=== PATIENT | male | born 1955 | race Caucasian/White ===

== ENCOUNTER 2017-12-05 01:46 | Outpatient (RCR) | payer BC, SELFPAY ==
[2017-12-05] MEDS: Lidocaine 1% Pres-Free 5 ML VIAL IJ (14:02)
[2017-12-05] MEDS: cefTRIAXone 250 MG VIAL IM (14:02)
== END 2017-12-12 23:59 | disposition home or self-care (01) ==
LOC: INF 01:46
PROVIDERS: PCP Internal Medicine; Visit Provider Internal Medicine
DX: N45.1 Epididymitis (principal)
CPT/HCPCS: 96372; J0696

== ENCOUNTER 2018-01-08 01:01 | Outpatient (CLI) | payer BC, SELFPAY ==
--- NOTE | 2018-01-08 12:00 | DI.US_ITS ---
SYMPTOM/DIAGNOSIS: EPIGASTRIC PAIN/ ? MASS R10.13 ABDOMEN ULTRASOUND: There are no prior comparison exams. The aorta is normal in diameter. The pancreas is not well visualized due to body habitus and bowel gas. No gross masses are seen. Small lesions cannot be excluded. The liver is mildly enlarged and shows fatty infiltration. No focal liver lesions are visible. The posterior portions of the liver are not well seen. There is no biliary dilatation. The gallbladder appears normal. Small left renal cyst is seen. There is no evidence of hydronephrosis. The kidneys show normal parenchymal thickness. No ascites is seen. IMPRESSION: Fatty infiltration of the liver. Pancreas is not well visualized.
--- NOTE | 2018-01-08 12:04 | DI.US_ITS ---
SYMPTOM/DIAGNOSIS: SCROTAL PAIN, SWELLING, NOT ACUTE SCROTAL ULTRASOUND: The testicles are normal in size and echogenicity and show normal blood flow. No mass is identified. The epididymi are unremarkable. There are bilateral hydroceles, left greater than right No varicocele is seen. No inguinal hernias are identified. IMPRESSION: Bilateral hydroceles, left greater than right.
== END 2018-01-08 01:21 ==
PROVIDERS: PCP Internal Medicine; Visit Provider Internal Medicine
DX: N50.82 Scrotal pain (principal); N43.3 Hydrocele, unspecified; R10.13 Epigastric pain; K76.0 Fatty (change of) liver, not elsewhere classified
CPT/HCPCS: 76700; 76870

== ENCOUNTER 2018-01-09 08:29 | Outpatient (CLI) | payer BC, SELFPAY ==
[2018-01-10 09:50] LABS: HIV-1/2 Ag & Ab Screen Negative (NEGAT)
[2018-01-10 10:18] LABS: Syphilis Serology (RPR) Positive (Negative)
[2018-02-18 10:15] LABS: Syphilis IgG Ab w/Reflex Positive (Negative)
[2018-02-18 10:16] LABS: Rapid Plasma Reagin w/Reflex Positive (Negative)
== END 2018-01-09 08:49 ==
PROVIDERS: PCP Internal Medicine; Visit Provider Nurse Practitioner Family
DX: A51.5 Early syphilis, latent (principal); Z11.3 Encounter for screening for infections with a predominantly sexual mode of transmission
CPT/HCPCS: 36415; 86593; 87389; 87491; 87591; 86592; 86780

== ENCOUNTER 2018-01-14 09:18 | Day surgery (SDC) | payer BC, SELFPAY ==
--- NOTE | 2018-01-14 06:54 | W.COLOREPORT ---
Date of service: 01/14/18 Time of Service: :34 Colonoscopy Report Date of procedure: 01/14/18 Pre-op diagnosis general: Colon Cancer Screening Post-op diagnosis procedure note: same (Severe Diverticulosis ) Procedure: Colonoscopy Surgeon: Isabel Mc Anesthesia proc note operative: MAC (Ruben Chaparro, ARELY / ASA 2) Estimated blood loss (mL): 0 Pathology: none sent Complications: None Disposition: same day Indications: Mr. Magaña is a pleasant 62-year-old gentleman who was seen in the office for a screening colonoscopy. His last colonoscopy was normal. Risks, benefits, complications were reviewed with him and he wished to proceed. No guarantees were given or implied. Prep: Miralax/Dulcolax Procedure Start Time: :34 Procedure End Time: :55 Retraction Time: 14 minutes Findings: severe river-diverticulosis Procedure Description: After informed consent was obtained the patient was taken to the procedure room and placed in a left decubitous position. Monitors were applied and a time out was done. The patients name, date of , procedure, allergies to medications and metal in their body was reviewed. The patient was then sedated. Once sedated and comfortable a rectal exam was done. External exam was normal. Internal exam revealed a normal sphincter tone and no palpable masses. The prostate was not felt. The scope was then introduced and retro-flexed. No internal hemorrhoids were identified. The scope was then advanced to the cecum without difficulty. The TI and appendiceal orifice were identified. The prep was adequate. The scope was then slowly retracted over 14 minutes back into the rectum. The scope was removed and the patient was woken up and taken back to Same day surgery in stable condition. The patient tolerated the procedure well and there were no immediate complications. Follow up: The patient should follow up in 10 years unless they develop changes in bowel habits or other new gastrointestinal complaints.
--- NOTE | 2018-01-14 06:56 | PDOC.DSDIS_ITS ---
Discharge Plan Disposition Patient Disposition: HOME Condition: Good Discharge Details Reason For Visit: Colon Cancer Screening Attending Provider: Isabel Mc Primary Care Provider: Kiya Banegas Home Meds and New Rx's Prescriptions: Continue triamcinolone acetonide 15 GM cream 15 gm Topical PRN RF: 0 losartan-hydrochlorothiazide [Hyzaar] 1 EACH tablet 1 tab-cap PO DAILY RF: 0 ibuprofen 600 MG tablet 600 mg PO Q6H PRN PRNQty: 30 RF: 0 Discontinued bisacodyl [Dulcolax (bisacodyl)] 5 mg tablet,delayed release (DR/EC) 5 mg PO ONCE Qty: 4 RF: 0 polyethylene glycol 3350 17 gram/dose powder 255 g PO ONCE Qty: 255 RF: 0 Discharge Instructions Instructions: Colonoscopy (DC), Diverticulosis (DC) Additional Instructions: Findings: Severe Diverticulosis Follow up: 10 years new medications: none Please call if you develop: fevers >101.5 Nausea or Vomiting Abdominal pain that is not transient DAY SURGERY UNIT POST COLONOSCOPY INSTRUCTIONS 1. Because there will be medication in your system for the next 24 hours, you may feel a little sleepy. Your coordination will be affected. Therefore: a. Do not drive or operate dangerous equipment for 24 hours. b. Do not drink alcohol beverages for 24 hours (not even beer). c. Plan to go home and rest for the day. 2. Generally there are no restrictions on your activity after a day or so has gone by, but you may feel a bit fatigued for a few days. 3 After you arrive home you may have a light meal and return to a normal diet as you can tolerate it without feeling sick to your stomach. 4. After surgery, you may feel pain or discomfort. This should be only transient , but if it persists please contact your doctor. 5. If there are any questions regarding the findings of your procedure, please feel free to contact your doctor. 6. If you are unable to contact your doctor with a problem, contact the hospital at [phone]. 7. Continue all your regular medications unless directed otherwise. I understand the above instructions and have no questions. Signature of Patient or Responsible Adult Escort Date/Time Name of Responsible Adult Escort Signature of Nurse Date/Time Activity:: Activity as Tolerated Diet:: High Fiber diet Discharge Orders Discharge Orders: Discharge Order (Routine); Ordered 01/14/18 Ordered By: Isabel Mc DS: Diagnosis Discharge Diagnosis (1) Diverticulosis: Status: Acute (2) S/P colonoscopy: Status: Acute
[2018-01-14 09:45] VITALS: BP 146/99; PULSE 88; RESP 16; TEMP 37.3; O2SAT 95
[2018-01-14] MEDS: Lactated Ringers 1,000 ML 80 ML IV ×2 (10:11→11:26)
[2018-01-14 12:53] VITALS: BP 136/86; PULSE 78; RESP 16; TEMP 36.2; O2SAT 95
== END 2018-01-14 12:50 | disposition home or self-care (01) ==
LOC: SUR 09:19
PROVIDERS: PCP Internal Medicine; Visit Provider Surgery
PROC: 0DJD8ZZ Inspection of Lower Intestinal Tract, Via Natural or Artificial Opening Endoscopic (ICD-10-PCS; CPT 45378; principal; 2018-01-14 11:45)
DX: Z12.11 Encounter for screening for malignant neoplasm of colon (principal); K57.30 Diverticulosis of large intestine without perforation or abscess without bleeding; I10 Essential (primary) hypertension
CPT/HCPCS: 45378

== ENCOUNTER 2018-06-07 02:44 | Outpatient (RCR) | payer BC, SELFPAY ==
[2018-06-07] MEDS: cefTRIAXone 250 MG VIAL IM (07:31)
== END 2018-06-11 23:59 | disposition home or self-care (01) ==
LOC: INF 02:44
PROVIDERS: PCP Internal Medicine; Visit Provider Internal Medicine
DX: Z20.2 Contact with and (suspected) exposure to infections with a predominantly sexual mode of transmission (principal)
CPT/HCPCS: 96372; J0696

== ENCOUNTER 2018-07-05 19:31 | Emergency (ER) | payer BC, SELFPAY ==
[2018-07-05 19:39] VITALS: BP 189/91; PULSE 96; RESP 18; TEMP 37; O2SAT 95
[2018-07-05] MEDS: Emtricitabine/Tenofovir 200 mg/300 mg TAB 1 EACH PO (20:52)
[2018-07-05] MEDS: cefTRIAXone 1 GM VIAL 0.25 GM IM (20:52)
[2018-07-05] MEDS: Azithromycin 250 MG TAB 1000 MG PO (20:53)
[2018-07-05] MEDS: Raltegravir Potassium 400 MG TAB 800 MG PO ×2 (20:53→21:04)
[2018-07-05 21:07] LABS: Abs Immature Grans 0.03 k/cumm (0.0-0.09); Absolute Basophil Count 0.05 k/cumm (0.0-0.2); Absolute Eosinophil Count 0.23 k/cumm (0.0-0.7); Absolute Lymphocyte Count 3.27 k/cumm (1.2-3.4); Absolute Monocyte Count 0.71 k/cumm (0.11-0.7); Absolute Neutrophil Count 5.09 k/cumm (1.2-6.7); Basophils % 0.5; Eosinophils % 2.5; HCT 44.8 % (40.0-50.0); HGB 15.4 g/dL (13.5-17.5); Immature Grans % 0.3; Lymphocytes % 34.9; Mean Corp. HGB Concentration 34.4 g/dL (32.0-36.0); Mean Corpuscular Hemoglobin 30.6 pg (27.0-33.0); Mean Corpuscular Volume 88.9 fL (80-95); Monocytes % 7.6; Neutrophils % 54.2; Platelet Count 206 x1000/uL (130-400); RBC 5.04 m/cumm (4.50-6.00); RBC Distribution Width 13.8 % (11.8-14.1); White Blood Cell Count 9.38 k/cumm (4.4-10.8)
[2018-07-05 21:18] LABS: ALT 39 U/L (12-78); AST 30 U/L (15-37); Albumin 3.5 g/dL (3.4-5.0); Alkaline Phosphatase 59 U/L (46-116); Anion Gap 8.8 mmol/L (3-11); BUN 12 mg/dL (7-18); Bilirubin, Total 0.5 mg/dL (0.2-1.0); CO2 27.2 mmol/L (21.0-32.0); CREATININE 0.76 mg/dL (0.70-1.30); Calcium 8.8 mg/dL (8.5-10.1); Chloride 101 mmol/L (98-107); Glucose 140 mg/dL (70-100); Potassium 3.4 mmol/L (3.5-5.1); Sodium 137 mmol/L (136-145); Total Protein 7.5 g/dL (6.4-8.2)
--- NOTE | 2018-07-05 21:34 | W.ED.GENAD ---
Discharge Plan Disposition Patient Disposition: HOME Condition: Good Discharge Details Chief Complaint: BodyFldExp Clinical Impression: Concern about STD in male without diagnosis Primary Care Provider: Kiya Banegas ED Provider: Noé Kelley Home Meds and New Rx's Prescriptions: New Truvada 200-300 mg tablet 1 tab PO DAILY 25 Days Qty: 25 RF: 0 raltegravir 400 mg tablet 400 mg PO BID 25 Days Qty: 50 RF: 0 Continued triamcinolone acetonide 15 GM cream 15 gm Topical PRN RF: 0 losartan-hydrochlorothiazide [Hyzaar] 1 EACH tablet 1 tab-cap PO DAILY RF: 0 Discharge Instructions Instructions: Antiretroviral Medication Allergy (ED), Postexposure Prophylaxis (ED), HIV Infection (ED) Additional Instructions: If he becomes symptomatic or have any complications feel free to return the emergency department for reassessment. Otherwise it is recommended that you follow-up with your primary care provider for reassessment and further treatment as needed. Make sure that you take the full course of your medication for the entire 28 days to lower chances of possible infection. Stand Alone Forms: Work Release Referrals: Kiya Banegas [Primary Care Provider] - (For follow-up and retesting as needed) Discharge Data Discharge Date/Time-TO BE ENTERED AT DEPARTURE: 07/05/18 21:52 Medical Decision Making Patient presenting to the emergency department for chief complaint of possible STD exposure. Patient states that he was having anal sex with another man who is a new partner and the condom broke and semen was ejaculated into rectum. Patient states that he was tested less than 1 month ago and has always been HIV negative and has syphilis antibodies but has been treated appropriately. Patient denies any medical complaints at this time but just states for concern of possible STD exposure. Had thorough discussion with patient of risk and treatment of STD prophylactic exposure. Patient was agreeable to receiving PEP for full 28-day course along with prophylactic treatment for GC chlamydia. Patient given IM Rocephin, azithromycin, and initial doses of antivirals. Given holiday weekend patient was supplied with 3-day supply of antivirals and given prescription for remaining 25 days. Patient was encouraged to get retesting done and was informed to return for any symptoms. After discussion of diagnosis and plan of care patient has no further needs, questions, or concerns and states clear understanding to return to the emergency department for any worsening symptoms. HPI General Mode of arrival: ambulatory. Date/Time Provider Initiated Documentation: 07/05/18 19:34. Limitations to Documentation: no limitations. Information obtained by: patient and RN notes reviewed. History of Present Illness 63 year old M presents to the emergency department with the chief complaint of Possible STD exposure, Quality is described as other (Denies pain or discomfort), Patient started experiencing this day(s) (1) Patient notes no other symptoms.. Patient did receive the following treatments prior to arrival, none Related Data Home Medications Medication Instructions Recorded Confirmed losartan-hydrochlorothiazide 1 tab-cap PO DAILY tab-cap 06/06/16 07/05/18 [Hyzaar] triamcinolone acetonide 15 gm TOPICAL PRN script 06/06/16 07/05/18 emtricitabine-tenofovir (TDF) 1 tab PO DAILY 25 Days #25 tab 07/05/18 [Truvada] raltegravir 400 mg PO BID 25 Days #50 tab 07/05/18 Previous Rx's Medication Instructions Recorded emtricitabine-tenofovir (TDF) 1 tab PO DAILY 25 Days #25 tab 07/05/18 [Truvada] raltegravir 400 mg PO BID 25 Days #50 tab 07/05/18 Allergies Allergy/AdvReac Type Severity Reaction Status Date / Time No Known Allergies Allergy Unverified 07/05/18 19:43 General Stated Complaint: BodyFldExp ROGELIO: 4 Review of Systems Constitutional Denies body ache(s), Denies chills and Denies fever(s) Cardiovascular Denies chest pain and Denies dyspnea Respiratory Denies dyspnea Gastrointestinal Denies abdominal pain, Denies nausea and Denies vomiting Genitourinary Denies genital lesions and Denies penile discharge Integumentary/Breasts Denies rash Neurologic Denies sensory deficit [facility] Medical History Diverticulosis (Acute) HTN (hypertension) Umbilical hernia Surgical History S/P colonoscopy (Acute ~01/14/18) Repair of umbilical hernia (07/19/16) Social History Smoking/Tobacco Use Status: Never Alcohol Intake: current Alcohol Intake frequency: 0-2 drinks per day Alcohol type: wine Drug use: Occasionally Substance use type: does not use Do you feel safe at home: Yes Do you feel safe in your relationship?: Yes Exam Const General: cooperative, no acute distress and not ill appearing Orientation: alert, awake and oriented x3 Resp Effort & Inspection: normal respiratory effort, able to speak in complete sentences and no respiratory distress Cardio Rhythm: regular rhythm Skin General skin exam: no rashes or lesions noted Neuro General: alert, awake and oriented x3 Course Vital Signs Temperature 37.0 C 07/05/18 19:39 Pulse 96 H 07/05/18 19:39 Respiratory Rate 18 07/05/18 19:39 Blood Pressure 189/91 H 07/05/18 19:39 Pulse Oximetry 95 07/05/18 19:39 Temperature 37.0 C 07/05/18 19:39 Temperature Source Skin 07/05/18 19:39 Pulse 96 H 07/05/18 19:39 Respiratory Rate 18 07/05/18 19:39 Respiratory Effort Non-Labored 07/05/18 19:41 Blood Pressure 189/91 H 07/05/18 19:39 Blood Pressure Position Sitting 07/05/18 19:39 Pulse Oximetry 95 07/05/18 19:39 Oxygen Delivery Method Room Air 07/05/18 19:39 Oxygen Flow Rate 0 07/05/18 19:39 Pain Level 0 07/05/18 19:39 Lab/Test Results Lab/Test Results: Laboratory Tests Range/Units 07/05/18 07/05/18 07/05/18 20:51 21:00 21:00 WBC (4.4-10.8) k/cumm 9.38 RBC (4.50-6.00) m/cumm 5.04 Hgb (13.5-17.5) g/dL 15.4 Hct (40.0-50.0) % 44.8 MCV (80-95) fL 88.9 MCH (27.0-33.0) pg 30.6 MCHC (32.0-36.0) g/dL 34.4 RDW (11.8-14.1) % 13.8 Plt Count (130-400) x1000/uL 206 MPV (8.0-11.0) fL 9.0 Immature Gran % 0.3 Neutrophils % 54.2 Lymphocytes % 34.9 Monocytes % 7.6 Eosinophils % 2.5 Basophils % 0.5 Absolute Neutrophils (1.2-6.7) k/cumm 5.09 Absolute Lymphocytes (1.2-3.4) k/cumm 3.27 Absolute Monocytes (0.11-0.7) k/cumm 0.71 H Absolute Eosinophils (0.0-0.7) k/cumm 0.23 Absolute Basophils (0.0-0.2) k/cumm 0.05 Sodium (136-145) mmol/L 137 Potassium (3.5-5.1) mmol/L 3.4 L Chloride (98-107) mmol/L 101 Carbon Dioxide (21.0-32.0) mmol/L 27.2 Anion Gap (3-11) mmol/L 8.8 BUN (7-18) mg/dL 12 Creatinine (0.70-1.30) mg/dL 0.76 Estimated GFR/1.73 m2 (mL/min/1.73m2) >= 60.00 Glucose (70-100) mg/dL 140 H Calcium (8.5-10.1) mg/dL 8.8 Total Bilirubin (0.2-1.0) mg/dL 0.5 AST (15-37) U/L 30 ALT (12-78) U/L 39 Alkaline Phosphatase (46-116) U/L 59 Total Protein (6.4-8.2) g/dL 7.5 Albumin (3.4-5.0) g/dL 3.5 HIV 1&2 Antibody Rapid Cancelled
[2018-07-05] MEDS: Emtricitabine/Tenofovir 200 mg/300 mg TAB 2 EACH PO (21:43)
[2018-07-05] MEDS: Raltegravir Potassium 400 MG TAB 2000 MG PO (21:44)
--- NOTE | 2018-07-06 09:38 | NUR.NOTE ---
Nursing Note: Pt returned to ED concerned about getting meds filled. States that he called his pharmacy at [facility] who stated one would not be available until Sunday. Dr. Raymond also called and spoke with Nae who stated that meds are available and both scripts can be filled today. RX faxed to [facility] and paper copies given back to patient to take to pharmacy.
== END 2018-07-05 21:52 | disposition home or self-care (01) ==
PROVIDERS: Emergency Provider Nurse Practitioner Family; PCP Internal Medicine
DX: F41.9 Anxiety disorder, unspecified (principal); Z77.21 Contact with and (suspected) exposure to potentially hazardous body fluids; I10 Essential (primary) hypertension
CPT/HCPCS: 80053; 96372; 99284; 85025; J0696

== ENCOUNTER 2019-09-19 02:39 | Outpatient (CLI) | payer BC, SELFPAY ==
[2019-09-19 17:16] LABS: Anion Gap 11.2 mmol/L (3-11); BUN 20 mg/dL (7-18); CO2 25.8 mmol/L (21.0-32.0); CREATININE 0.81 mg/dL (0.70-1.30); Calcium 9.2 mg/dL (8.5-10.1); Calculated LDL 128 mg/dL (<100); Chloride 104 mmol/L (98-107); Cholesterol 201 mg/dL (<200); Glucose 82 mg/dL (74-106); HDL Cholesterol 50 mg/dL (40-60); Potassium 3.8 mmol/L (3.5-5.1); Sodium 141 mmol/L (136-145); Triglyceride 115 mg/dL (<150)
[2019-09-19 17:49] LABS: Hemoglobin A1C 5.8 % (3.8-5.6)
== END 2019-09-19 02:59 ==
PROVIDERS: PCP Internal Medicine; Visit Provider Internal Medicine
DX: I10 Essential (primary) hypertension (principal); E78.5 Hyperlipidemia, unspecified; R73.03 Prediabetes
CPT/HCPCS: 36415; 80048; 80061; 83036

== ENCOUNTER 2020-02-18 05:08 | Outpatient (CLI) | payer BC, SELFPAY ==
[2020-02-18 16:57] LABS: Calculated LDL 130 mg/dL (<100); Cholesterol 206 mg/dL (<200); HDL Cholesterol 55 mg/dL (40-60); Triglyceride 105 mg/dL (<150)
[2020-02-18 18:40] LABS: Hemoglobin A1C 5.7 % (<5.7)
[2020-02-18 22:01] LABS: PSA, Screening 0.6 ng/mL (0.0-4.5)
[2020-02-19 10:38] LABS: HIV-1/2 Ag & Ab Screen Negative (Negative)
== END 2020-02-18 05:28 ==
PROVIDERS: PCP Internal Medicine; Visit Provider Internal Medicine
DX: Z00.00 Encounter for general adult medical examination without abnormal findings (principal); Z13.1 Encounter for screening for diabetes mellitus; Z13.220 Encounter for screening for lipoid disorders; Z11.4 Encounter for screening for human immunodeficiency virus [HIV]; Z12.5 Encounter for screening for malignant neoplasm of prostate
CPT/HCPCS: 36415; 80061; 84153; 87389; 83036

== ENCOUNTER 2020-08-17 04:03 | Outpatient (CLI) | payer BC, SELFPAY ==
[2020-08-17 16:56] LABS: Hemoglobin A1C 5.8 % (<5.7)
[2020-08-17 18:01] LABS: Calculated LDL 125 mg/dL (<100); Cholesterol 207 mg/dL (<200); HDL Cholesterol 59 mg/dL (40-60); Triglyceride 115 mg/dL (<150)
[2020-08-18 17:46] LABS: PSA, Screening 0.5 ng/mL (0.0-4.5)
[2020-08-19 11:06] LABS: HIV-1/2 Ag & Ab Screen Negative (Negative)
== END 2020-08-17 04:04 | disposition home or self-care (01) ==
LOC: LBO 04:03
PROVIDERS: PCP Internal Medicine; Visit Provider Internal Medicine
DX: Z00.00 Encounter for general adult medical examination without abnormal findings (principal); Z13.1 Encounter for screening for diabetes mellitus; Z13.220 Encounter for screening for lipoid disorders; Z12.5 Encounter for screening for malignant neoplasm of prostate; Z11.4 Encounter for screening for human immunodeficiency virus [HIV]
CPT/HCPCS: 36415; 80061; 84153; 87389; 83036

== ENCOUNTER 2020-09-08 09:26 | Outpatient (CLI) | payer BC, SELFPAY ==
[2020-09-08 16:13] LABS: ALT 42 U/L (16-63); AST 29 U/L (15-37); Albumin 3.7 g/dL (3.4-5.0); Alkaline Phosphatase 61 U/L (46-116); Anion Gap 8.9 mmol/L (3-11); BUN 12 mg/dL (7-18); Bilirubin, Total 0.4 mg/dL (0.2-1.0); CO2 29.1 mmol/L (21.0-32.0); CREATININE 0.8 mg/dL (0.70-1.30); Calcium 8.8 mg/dL (8.5-10.1); Chloride 102 mmol/L (98-107); Glucose 121 mg/dL (74-106); Potassium 3.8 mmol/L (3.5-5.1); Sodium 140 mmol/L (136-145); Total Protein 7.2 g/dL (6.4-8.2)
== END 2020-09-08 09:27 | disposition home or self-care (01) ==
PROVIDERS: PCP Internal Medicine; Visit Provider Internal Medicine
DX: I10 Essential (primary) hypertension (principal)
CPT/HCPCS: 36415; 80053

== ENCOUNTER 2023-10-22 01:21 | Outpatient (CLI) | payer BC, MEDICARE, SELFPAY ==
--- NOTE | 2023-10-22 08:30 | DI.US_ITS ---
APPROVED REPORT EXAM: Comprehensive 2D, Doppler, and color-flow Echocardiogram Patient Location: Out-Patient Patching Machine Operator: Sonu Abad RDCS (AE) Indications: Nonischemic [employer] SAL[employer] Other Information Technically limited study due to body habitus. Conclusion Normal left ventricular wall thickness and chamber size. Ejection fraction is 45%. There is global hypokinesis Normal right ventricular size and function Left atrium is mildly dilated. Right atrial size is normal There are no structural valvular abnormalities Trace to mild mitral regurgitation Wall motion Left Ventricle The left ventricle is normal size. Left ventricular systolic function is mild to moderately decreased . There is normal left ventricular wall thickness. There is global hypokinesis of the left ventricle. There is no ventricular septal defect visualized. LVEF is 45%. Right Ventricle The right ventricle is normal size. The right ventricular systolic function is normal. Atria Left atrium is mildly dilated. The right atrium size is normal. The interatrial septum is intact with no evidence for an atrial septal defect. Aortic Valve The aortic valve is normal in structure. Aortic valve is trileaflet. There is no aortic valvular sten osis. No aortic regurgitation is present. Mitral Valve The mitral valve is normal in structure. No evidence of mitral valve stenosis. Trace to mild mitral r egurgitation. Tricuspid Valve The tricuspid valve is normal in structure. There is no tricuspid valve stenosis. Trace tricuspid reg urgitation. Unable to assess PA pressure. Pulmonic Valve The pulmonary valve is normal in structure. There is no pulmonic valvular stenosis. Trace pulmonic re gurgitation. Great Vessels The aortic root is normal in size. Ascending aorta is normal in caliber. Aortic arch is normal in sue iber. IVC is normal in size and collapses >50% with inspiration. Pericardium There is no pericardial effusion. 2D Dimensions IVSD d PLAX 0.86 cm M: 0.6-1.2 Ao Root d 3.26 cm M: 3.1 - 3.7 LVPW d PLAX 0.88 cm M: 0.6 - 1.2 Ao Asc Diam d 3.46 cm M: 2.6 - 3.4 LVID d PLAX 6.50 cm M: 4.2 - 5.8 LVDs 5.02 cm M: 2.5 - 4.0 LV EF Teichholz 44.9 % FS 22.86 % LV EDV (Teich) 216.2 mL LV ESV (Teich) 119.2 mL Stroke Vol Index (Teich) 41.66 M-Mode TAPSE 2.72 cm (M/F) >1.7 Auto EF LV EDV A4C 173.7 mL LV EDV A2C 172.3 mL LV EDV BP 171.7 mL LV ESV A4C 95.2 mL LV ESV A2C 93.0 mL LV ESV BP 93.2 mL LVEF(%) A4C 45.2 % LVEF(%) A2C 46.0 % LVEF(%) BP 45.7 % LV SV A4C 78.5 ml LV SV A2C 79.3 ml LV SV BP 78.5 ml LV CO A4C 5.5 L/min LV CO A2C 5.3 L/min LV CO BP 5.4 L/min HR A4C 70.59 BPM HR A2C 67.01 BPM LV EDV Index (BP) LA Volume LA Length A4C 5.1 cm LA Length A2C 5.2 cm LA Area A4C s 18.59 cm2 LA Area A2C s 20.51 cm2 LA Vol A4C A-L 57.41 mL LA Vol A2C A-L 69.25 mL LA Vol Biplane A-L 63.3 mL LA Vol/BSA A4C A-L LA Vol/BSA A2C A-L LA Vol/BSA BP A-L 27.2 mL/m2 LA Vol A4C MOD 53.2 mL LA Vol A2C MOD 62.7 mL LA Vol BP MOD 57.7 mL RA Volume RA Area A4C 14.6 cm2 RA ESV A4C (A-L) 38.7mL RA Vol/BSA A4C A-L RA Length A4C 4.7 cm RA ESV A4C (MOD) 32.3mL LV Diastology MV E' medial 0.055 (>0.07 m/s) MV E Vmax 0.36 (0.4-1.3 m/s) MV E/E' MED 6.48 (<14) MV A Vmax 0.80 (0.4-1.3 m/s) MV E' lateral 0.079 (>0.1 m/s) E/A Ratio 0.4 MV E/E' LAT 4.51 (<14) MV E' Average 0.067 m/s MV E/E'(average) 5.32 Aortic Valve AoV Vmax 1.19 m/s LVOT Vmax 0.85 m/s AoV Peak Grad 5.7 mmHg LVOT Peak Grad 2.9 mmHg AoV Area (Vmax) 2.46 cm2 LVOT VTI 0.213 m AoV VTI 0.273 m LVOT Mean Grad 1.5 mmHg AoV Mean Magnus. 0.89 m/s LVOT SV 73.90 mL AoV Mean Grad 3.5 mmHg LVOT Diam s 2.10 cm AoV Area (VTI) 2.70 cm2 AV Regurg Peak Gr. 5.70 mmHg Velocity Ratio 0.71 Mitral Valve MV DT 198 (160-240 msec) MV Vmax TIPS 0.95 m/s MV Mean Grad 1.2 (<2mmHg) MV VTI 0.317 m Pulmonary Valve PV Vmax 1.04 (0.5-1.5 m/s) RVOT Vmax 0.57 m/s PV Peak Grad 4.4 mmHg RVOT Peak Gr. 1.3 mmHg PV Mean Magnus 0.70 m/s RVOT VTI 0.125 m PV Mean Grad 2.3 mmHg RVOT Mean Gr. 0.7 mmHg
== END 2023-10-22 01:41 ==
PROVIDERS: PCP Internal Medicine; Visit Provider Internal Medicine
DX: I25.5 Ischemic cardiomyopathy (principal)
CPT/HCPCS: 93306

== ENCOUNTER 2023-12-25 07:49 | Outpatient (CLI) | payer MEDICARE, BC, SELFPAY ==
--- NOTE | 2023-12-25 07:45 | RT.EKG_ITS ---
APPROVED REPORT Exam: Resting ECG Reason for Exam: CMP, HTN Patient Location: O HR:72 bpm ECG Measurements Heart Rate 72 AXIS ME 170 P 27 QRSd 107 QRS -15 QT 382 T 47 QTc 419 Conclusion Sinus rhythm...normal P axis, V-rate 50- 99 Ventricular premature complex...V complex w/ short R-R interval , early transition...QRS area>0 in V2
== END 2023-12-25 07:50 | disposition home or self-care (01) ==
LOC: DI.CARD 07:50
PROVIDERS: PCP Internal Medicine; Visit Provider Internal Medicine Cardiovascular Disease
DX: I42.9 Cardiomyopathy, unspecified (principal)
CPT/HCPCS: 93010

== ENCOUNTER → 2023-12-25 11:00 | Outpatient (BNVA) | payer MEDICARE, BC, SELFPAY | PROVIDERS: PCP Internal Medicine; Referring Provider Internal Medicine; Visit Provider Internal Medicine Cardiovascular Disease | DX: R94.31 Abnormal electrocardiogram [ECG] [EKG] (principal); I42.9 Cardiomyopathy, unspecified; I10 Essential (primary) hypertension | CPT/HCPCS: 93005; 99203 ==

== ENCOUNTER 2023-12-29 14:48 | Emergency (ER) | payer MEDICARE, BC, SELFPAY ==
[2023-12-29] VITALS (7 sets, daily range): BP systolic 121–183; BP diastolic 75–88; PULSE 75–88; RESP 13–28; TEMP 36.8; O2SAT 93–98
--- NOTE | 2023-12-29 14:45 | RT.EKG_ITS ---
APPROVED REPORT Exam: Resting ECG Reason for Exam: Heart Attack ? Patient Location: E HR:75 bpm ECG Measurements Heart Rate 75 AXIS OR 166 P 44 QRSd 106 QRS -31 QT 398 T [id number] QTc 445 Conclusion Sinus rhythm at a rate of 75 without acute ischemic change
--- NOTE | 2023-12-29 14:45 | DI.RAD_ITS ---
Exam(s) XR PORTABLE CHEST AP EXAM: XR PORTABLE CHEST AP CLINICAL HISTORY: Chest pain TECHNIQUE: 2D digital imaging was performed. COMPARISON: No exams were available for comparison FINDINGS: Exam limited by under penetration. LUNGS: Clear. No pleural abnormality seen. HEART: Mildly enlarged. AORTA: Normal diameter. BONES: Unremarkable for age. Soft tissues: Unremarkable. IMPRESSION: No acute findings. DATA REPOSITORY: RADIATION DOSE DELIVERED:
[2023-12-29 15:04] LABS: Abs Immature Grans 0.04 10^3/uL (0.0-0.06); Absolute Lymphocyte Count 4.05 10^3/uL (1.2-3.4); Basophils % 0.5 %; Eosinophils % 2.7 %; HCT 45.5 % (40.0-50.0); HGB 15.4 g/dL (13.5-17.5); Immature Grans % 0.4 %; MCH 30.9 pg (27.0-33.0); MCHC 33.8 % (32.0-36.0); MCV 91 fL (80-95); MPV 8.8 fL (8.0-11.0); Monocytes % 8.2 %; Neutrophils % 51.2 %; Platelet Count 226 10^3/uL (130-400); RBC 4.98 10^6/uL (4.36-5.78); RDW 13.4 % (11.8-14.1); RDW-SD 44.7 fL; WBC 10.94 10^3/uL (4.4-10.8)
[2023-12-29 15:05] LABS: Absolute Basophil Count 0.05 10^3/uL (0.0-0.2)
--- NOTE | 2023-12-29 15:10 | W.ED.GENAD ---
Discharge Plan Disposition Patient Disposition: Home Condition: Stable Discharge Details Clinical Impression: Chest pain Primary Care Provider: Kiya Banegas ED Provider: Mendy Jones Home Meds and New Rx's Prescriptions: No Action olmesartan 40 mg tablet 20 mg PO DAILY pravastatin 20 mg tablet 20 mg PO DAILY magnesium 250 mg tablet 250 mg PO .3Xw cholecalciferol (vitamin D3) 25 mcg (1,000 unit) capsule 25 mcg PO DAILY aspirin [Adult Aspirin Regimen] 81 mg tablet,delayed release (DR/EC) 81 mg PO DAILY omega 6-vmn-cvn-fish oil [Fish Oil] 1,000 (120-180) mg capsule 1 cap PO DAILY triamcinolone acetonide 15 GM cream 15 gm Topical PRN spironolactone 25 mg tablet 25 mg PO DAILY Discharge Instructions Instructions: Chest Pain, Adult ED Additional Instructions: As discussed your heart protein recheck today all came back unremarkable. The rest of your workup is also unremarkable which is reassuring. Nevertheless I would recommend you follow-up with Dr. Wei. Please call her office on Sunday to make an appointment however should you get worse or if you develop any new or concerning symptoms please return to the emergency department for reevaluation. HPI General Date/Time Provider Initiated Documentation: 12/29/23 14:50. HPI Narrative: The patient is a 68-year-old male with a history of borderline diabetes, coronary artery disease who comes the emergency department for chest pain. Patient reports that around 230 this afternoon while he was working on baskets outside and not doing anything strenuous he developed tightness in his chest. Reports it was in the middle of his chest without radiation and he felt short of breath with this. Reports that he did not get sweaty. Reports that he and his drove to the hospital and by the time he arrived, 20 minutes later the chest pain had resolved on its own. Reports that last year and the year before he had something similar. Reports that he went to a different emergency department and they thought that it was to do with anxiety. Reports eventually he saw vocational rehab consultant who did an echocardiogram thought that maybe those chest pain episodes he had in the past was to do with heart attack. Because of this history he wanted to get checked out. Reports he was at his baseline health prior. Denies any fever, cough. Denies abdominal pain, nausea or vomiting. Denies leg pain or leg swelling. Denies any recent travel. Related Data Home Medications ?Medication ?Instructions ?Recorded ?Confirmed triamcinolone acetonide 0.1 % 15 gm topical PRN 06/06/16 12/29/23 topical cream spironolactone 25 mg tablet 25 mg PO DAILY 11/27/23 12/29/23 aspirin 81 mg tablet,delayed 81 mg PO DAILY 12/25/23 12/29/23 release (Adult Aspirin Regimen) cholecalciferol (vitamin D3) 25 25 mcg PO DAILY 12/25/23 12/29/23 mcg (1,000 unit) capsule magnesium 250 mg tablet 250 mg PO .3Xw 12/25/23 12/29/23 olmesartan 40 mg tablet 20 mg PO DAILY 12/25/23 12/29/23 omega 8-zic-mzs-fish oil 1,000 mg 1 cap PO DAILY 12/25/23 12/29/23 (120 mg-180 mg) capsule (Fish Oil) pravastatin 20 mg tablet 20 mg PO DAILY 12/25/23 12/29/23 Allergies Allergy/AdvReac Type Severity Reaction Status Date / Time No Known Allergies Allergy Verified 12/29/23 14:54 General Stated Complaint: Chest Pain ROGELIO: 2 Review of Systems Narrative: Review of systems are negative except as mentioned. Constitutional Constitutional: Reports as per HPI Cardiovascular Cardiovascular: Reports chest pain, Denies leg edema and Reports dyspnea Respiratory Respiratory: Denies cough and Reports dyspnea Gastrointestinal Gastrointestinal: Denies abdominal pain, Denies nausea and Denies vomiting Exam Narrative Exam Narrative: The patient is in no acute distress. He is sitting comfortably on ED stretcher speaking in full sentences. His heart is regular in rate and rhythm. The patient has equal radial pulses. His lungs are clear to auscultation bilaterally. The patient's abdomen is soft with normal bowel sounds and nontender to palpation throughout. The patient has no lower extremity edema noted bilaterally and no calf tenderness. Skin is warm and dry. No reproducible chest wall tenderness is noted to palpation. Course Vital Signs Vital signs: Vital Signs Temperature 36.8 C 12/29/23 14:50 Pulse 81 12/29/23 14:50 Respiratory Rate 20 12/29/23 14:50 Blood Pressure 183/88 H 12/29/23 14:50 Pulse Oximetry 95 12/29/23 14:50 Temperature 36.8 C 12/29/23 14:50 Pulse 81 12/29/23 14:50 Respiratory Rate 18 12/29/23 14:59 Respiratory Effort Normal 12/29/23 14:59 Respiratory Depth Normal 12/29/23 14:59 Blood Pressure 183/88 H 12/29/23 14:50 Pulse Oximetry 95 12/29/23 14:50 Oxygen Delivery Method Room Air 12/29/23 14:50 Oxygen Flow Rate 0 12/29/23 14:50 Pain Level 8 12/29/23 14:50 Lab/Test Results Lab/Test Results: Laboratory Tests Range/Units 12/29/23 14:56 WBC (4.4-10.8) 10^3/uL 10.94 H RBC (4.36-5.78) 10^6/uL 4.98 Hgb (13.5-17.5) g/dL 15.4 Hct (40.0-50.0) % 45.5 MCV (80-95) fL 91 MCH (27.0-33.0) pg 30.9 MCHC (32.0-36.0) % 33.8 RDW (11.8-14.1) % 13.4 Plt Count (130-400) 10^3/uL 226 MPV (8.0-11.0) fL 8.8 Immature Gran % % 0.4 Neutrophils % % 51.2 Lymphocytes % % 37.0 Monocytes % % 8.2 Eosinophils % % 2.7 Basophils % % 0.5 Nucleated RBC % (0.0-0.3) % 0.0 Absolute Neutrophils (1.2-6.7) 10^3/uL 5.60 Absolute Lymphocytes (1.2-3.4) 10^3/uL 4.05 H Absolute Monocytes (0.1-0.8) 10^3/uL 0.90 H Absolute Eosinophils (0.0-0.7) 10^3/uL 0.30 Absolute Basophils (0.0-0.2) 10^3/uL 0.05 Medical Decision Making Cardiac workup has been started on this patient. He is asymptomatic and hemodynamically stable upon arrival which is reassuring. EKG is done and it is nondiagnostic. Chest x-ray is back and this is unremarkable. His blood counts and chemistries are back and they are likewise unremarkable. Initial troponin is unremarkable. I told the patient and his of plan for repeat troponins and they are willing to wait. Second troponin is back and it continues to be within normal limits. Third troponin is back and it continues to be within normal limits. I have updated the patient and his for Result. Fortunately the patient remains hemodynamically stable and asymptomatic. I told him of plan for discharge. I encouraged him regardless to follow-up with his vocational rehab consultant and asked them to call the office on Sunday to make an appointment but asked him to return to the emergency department with any worsening symptoms or any other concerns. Imaging Data Radiologic Study: Imaging: X-Ray Radiologist's impression: No acute findings ECG Data Attestation: I personally reviewed and interpreted this ECG (s) as follows: Interpretation: Sinus rhythm at a rate of 75 without acute ischemic change Quality:SDOH Health Related Social Needs: No Data to Display PFSH All Active Problems (Updated 12/29/23 @ 18:44 by Mendy Jones DO) Chest pain (Acute) Coronary artery disease (Chronic) Cardiomyopathy (Acute) Borderline diabetes (Acute) Morbid obesity with BMI of 45.0-49.9, adult (Acute) S/P colonoscopy (Acute ~01/14/18) Diverticulosis (Acute) Encounter for screening colonoscopy (Acute) Medical History (Updated 12/29/23 @ 18:44 by Mendy Jones DO) HTN (hypertension) Umbilical hernia Surgical History Repair of umbilical hernia (07/19/16) Family History Brother Cancer Pancreatic Father Heart disease Heart failure Sister Heart disease age 48 Social History (Updated 12/25/23 @ 11:40 by Mena Patel RN) Smoking/Tobacco Use Status: Never Smoking risk assessment performed?: Yes Alcohol Intake: current Alcohol Intake frequency: 0-2 drinks per day Alcohol type: wine Drug use: Occasionally Substance use type: does not use Household members: spouse current occupation: works at [employer] Do you think of yourself as: lesbian/mccann/homosexual Current gender identity: male What is your relationship status?: Panel score (0-1 are the most socially isolated patients): 1 What type of physical activity do you participate in: walking Duration: < 15 minutes/day Frequency: 1-2 times per week Do you feel safe at home: Yes Do you feel safe in your relationship?: Yes
[2023-12-29 15:24] LABS: ALT 99 U/L (16-63); AST 152 U/L (15-37); Albumin 3.7 g/dL (3.4-5.0); Alkaline Phosphatase 78 U/L (46-116); Anion Gap 7.1 mmol/L (3-11); BUN 24 mg/dL (7-18); CO2 28.9 mmol/L (21.0-32.0); CREATININE 0.9 mg/dL (0.70-1.30); Calcium 8.9 mg/dL (8.5-10.1); Chloride 104 mmol/L (98-107); Estimated GFR 94.19 (mL/min/1.73m2); Glucose 107 mg/dL (74-106); Magnesium 2.1 mg/dL (1.8-2.4); Potassium 4.7 mmol/L (3.5-5.1); Sodium 140 mmol/L (136-145); Total Protein 7.8 g/dL (6.4-8.2); Troponin I 9 ng/L (<or=76)
--- NOTE | 2023-12-29 15:43 | DI.VRAD_ITS ---
PROCEDURE INFORMATION: Exam: XR Chest Exam date and time: 12/29/2023 3:17 PM Age: 68 years old Clinical indication: Other: Unspecified; Patient HX: Chest pain TECHNIQUE: Imaging protocol: Radiologic exam of the chest. Views: 1 view. Other technique: Portable exam. COMPARISON: No relevant prior studies available. FINDINGS: Lungs: Unremarkable. No consolidation. Pleural spaces: Unremarkable. No pleural effusion. No pneumothorax. Heart/Mediastinum: Cardiomegaly. Bones/joints: Unremarkable. IMPRESSION: No evidence for acute abnormality in the chest. Dictated and Authenticated by: Katia Suarez MD. Ordering:JULISSA Brooke MD
[2023-12-29 16:17] LABS: Troponin I 11 ng/L (<or=76)
[2023-12-29 18:36] LABS: Troponin I 9 ng/L (<or=76)
== END 2023-12-29 18:52 | disposition home or self-care (01) ==
PROVIDERS: Emergency Provider Emergency Medicine; PCP Internal Medicine
DX: R07.9 Chest pain, unspecified (principal); I10 Essential (primary) hypertension; I25.10 Atherosclerotic heart disease of native coronary artery without angina pectoris; Z79.82 Long term (current) use of aspirin
CPT/HCPCS: 80053; 93005; 99285; 71045; 83735; 84484; 85025; 93010; 99284

== ENCOUNTER → 2024-01-07 13:30 | Outpatient (BNVA) | payer MEDICARE, BC, SELFPAY | PROVIDERS: PCP Internal Medicine; Referring Provider Internal Medicine; Visit Provider Internal Medicine Cardiovascular Disease | DX: R07.9 Chest pain, unspecified (principal); I42.9 Cardiomyopathy, unspecified | CPT/HCPCS: 99213 ==

== ENCOUNTER 2024-07-15 01:18 | Outpatient (CLI) | payer MEDICARE, BC, SELFPAY ==
--- NOTE | 2024-07-15 06:15 | DI.US_ITS ---
APPROVED REPORT EXAM: Comprehensive 2D, Doppler, and color-flow Echocardiogram Patient Location: Out-Patient [facility] Supervisor: Adina Cohen RDCS (AE) Indications: Recheck LV function, Cardiomyopathy Other Information Study Quality: Fair. Technically limited study due to body habitus. Conclusion Normal left ventricular wall thickness and chamber size. EF is 45%. There is mild global hypokinesi s Normal right ventricular size and function Both atria are normal in size Mild mitral regurgitation Ascending aorta measures 3.88 cm Wall motion Left Ventricle The left ventricle is normal size. Left ventricular systolic function is mildly decreased. There is n ormal left ventricular wall thickness. There is global hypokinesis of the left ventricle. There is no ventricular septal defect visualized. LVEF is 45%. Right Ventricle The right ventricle is normal size. The right ventricular systolic function is normal. Atria The left atrium size is normal. The right atrium size is normal. The interatrial septum is intact wit h no evidence for an atrial septal defect. Aortic Valve The aortic valve is normal in structure. Aortic valve is trileaflet. There is no aortic valvular sten osis. No aortic regurgitation is present. Mitral Valve Mild mitral annular calcification. No evidence of mitral valve stenosis. Mild mitral regurgitation. Tricuspid Valve The tricuspid valve is normal in structure. There is no tricuspid valve stenosis. Trace tricuspid reg urgitation. Unable to assess PA pressure. Pulmonic Valve The pulmonary valve is normal in structure. There is no pulmonic valvular stenosis. Trace pulmonic re gurgitation. Great Vessels The aortic root is normal in size. The ascending aorta is mildly dilated. Aortic arch is not well vis ualized. IVC is normal in size and collapses >50% with inspiration. Pericardium There is no pericardial effusion. 2D Dimensions IVSD d PLAX 1.10 cm M: 0.6-1.2 Ao Root d 3.24 cm M: 3.1 - 3.7 LVPW d PLAX 1.12 cm M: 0.6 - 1.2 Ao Asc Diam d 3.88 cm M: 2.6 - 3.4 LVID d PLAX 5.28 cm M: 4.2 - 5.8 LVDs 4.16 cm M: 2.5 - 4.0 LV EF Teichholz 42.8 % FS 21.26 % LV EDV (Teich) 134.4 mL LV ESV (Teich) 76.8 mL M-Mode TAPSE 2.17 cm (M/F) >1.7 Auto EF LV EDV A4C 206.4 mL LV EDV A2C 204.0 mL LV EDV BP 207.7 mL LV ESV A4C 121.0 mL LV ESV A2C 120.3 mL LV ESV BP 122.0 mL LVEF(%) A4C 41.4 % LVEF(%) A2C 41.1 % LVEF(%) BP 41.3 % LV SV A4C 85.4 ml LV SV A2C 83.8 ml LV SV BP 85.7 ml LV CO A4C 7.1 L/min LV CO A2C 6.1 L/min LV CO BP 6.6 L/min HR A4C 82.57 BPM HR A2C 72.55 BPM LV EDV Index (BP) LA Volume LA Length A4C 5.3 cm LA Length A2C 5.5 cm LA Area A4C s 19.51 cm2 LA Area A2C s 20.95 cm2 LA Vol A4C A-L 60.82 mL LA Vol A2C A-L 67.62 mL LA Vol Biplane A-L 65.3 mL LA Vol/BSA A4C A-L LA Vol/BSA A2C A-L LA Vol/BSA BP A-L 32.6 mL/m2 LA Vol A4C MOD 55.6 mL LA Vol A2C MOD 63.9 mL LA Vol BP MOD 60.1 mL RA Volume RA Area A4C 15.3 cm2 RA ESV A4C (A-L) 41.3mL RA Vol/BSA A4C A-L RA Length A4C 4.8 cm RA ESV A4C (MOD) 39.8mL LV Diastology MV E' medial 0.055 (>0.07 m/s) MV E Vmax 0.76 (0.4-1.3 m/s) MV E/E' MED 13.67 (<14) MV A Vmax 0.95 (0.4-1.3 m/s) MV E' lateral 0.077 (>0.1 m/s) E/A Ratio 0.8 MV E/E' LAT 9.85 (<14) MV E' Average 0.066 m/s MV E/E'(average) 11.45 Aortic Valve AoV Vmax 1.25 m/s LVOT Vmax 1.02 m/s AoV Peak Grad 6.3 mmHg LVOT Peak Grad 4.2 mmHg AoV Area (Vmax) 2.69 cm2 LVOT VTI 0.219 m AoV VTI 0.268 m LVOT Mean Grad 2.5 mmHg AoV Mean Magnus. 0.95 m/s LVOT SV 72.34 mL AoV Mean Grad 4.0 mmHg LVOT Diam s 2.00 cm AoV Area (VTI) 2.70 cm2 AV Regurg Peak Gr. 6.29 mmHg Velocity Ratio 0.82 Mitral Valve MV DT 366 (160-240 msec) MV Vmax TIPS 1.04 m/s MV Mean Grad 1.5 (<2mmHg) MV VTI 0.302 m Pulmonary Valve PV Vmax 0.94 (0.5-1.5 m/s) RVOT Vmax 0.71 m/s PV Peak Grad 3.5 mmHg RVOT Peak Gr. 2.0 mmHg PV Mean Magnus 0.61 m/s RVOT VTI 0.157 m PV Mean Grad 1.8 mmHg RVOT Mean Gr. 1.2 mmHg Tricuspid Valve RA Pressure 3.00 mmHg TV S' 0.15 m/s
== END 2024-07-15 01:38 ==
LOC: DI 01:18
PROVIDERS: PCP Internal Medicine; Visit Provider Internal Medicine Cardiovascular Disease
DX: I42.9 Cardiomyopathy, unspecified (principal)
CPT/HCPCS: 93306

== ENCOUNTER → 2024-08-06 14:25 | Outpatient (BNVA) | payer MEDICARE, BC, SELFPAY | PROVIDERS: PCP Internal Medicine; Referring Provider Internal Medicine; Visit Provider Registered Nurse | DX: I42.9 Cardiomyopathy, unspecified (principal) | CPT/HCPCS: 99214 ==

== ENCOUNTER → 2025-02-02 14:11 | Outpatient (BNVA) | payer MEDICARE, BC, SELFPAY | PROVIDERS: PCP Internal Medicine; Referring Provider Internal Medicine; Visit Provider Registered Nurse | DX: I25.10 Atherosclerotic heart disease of native coronary artery without angina pectoris (principal); I42.9 Cardiomyopathy, unspecified; Z79.02 Long term (current) use of antithrombotics/antiplatelets | CPT/HCPCS: 99214 ==